=== PATIENT | male | born 1980 | race Caucasian/White ===

== ENCOUNTER 2025-02-01 17:38 | Emergency (ER) | payer OTHER ==
[~2025-02-01] VITALS: Ht 172.7 cm; Wt 106.6 kg
[~2025-02-01 17:38] MED LIST: ACYC400 PO; AZIT250 PO; CARB200 PO; CYCL10 PO; HYDACE5 PO; NAPR550 PO; Norco 5-325 Ta1 EACH PO; OXYACE5T PO; RXNAPNA550 PO; SILSUL1TC TOP
[2025-02-01] MEDS ORDERED: Tetracaine HCl/Pf 0.5% Opth Soln 4 ml RIGHTEYE ONE (19:10)
[2025-02-01] MEDS ORDERED: Fluorescein Sod 1MG Opth Strips RIGHTEYE ONE (19:15)
[2025-02-01] MEDS ORDERED: Fluorescein Sod 1MG Opth Strips LEFTEYE ONE (19:55)
[2025-02-01] MEDS ORDERED: Ciprofloxacin2.5 ML RIGHTEYE (20:04)
== END 2025-02-01 20:08 | disposition home or self-care (01) ==
LOC: ER 17:38
DX: S05.01XA Injury of conjunctiva and corneal abrasion without foreign body, right eye, initial encounter (principal); X58.XXXA Exposure to other specified factors, initial encounter; Z59.89 Other problems related to housing and economic circumstances
CPT/HCPCS: 99283; A9270